=== PATIENT | male | born 1965 | race Caucasian/White ===

== ENCOUNTER 2019-04-28 18:52 | Emergency (ER) | payer OTHER ==
[2019-04-28 19:20] VITALS: BP 124/84
--- NOTE | 2019-04-28 19:25 | ED Physician Documentation ---
General Adult - HPI Stated Complaint: possible in sect bite Chief Complaint: General Adult Timing: still present Severity: mild Further Comments: yes (Pt is a 54 yo male with a possible insect bite on his R forearm. 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 There is no warmth or tenderness. Tetanus is utd.) - ROS CONST: no problems EYES/ENT: none CVS/RESP: none GI/: none MS/SKIN/LYMPH: other (insect bite) - PAST HX Past History: hypertension Surgeries/Procedures: cholecystectomy Allergies/Adverse Reactions: Allergies Allergy/AdvReac Type Severity Reaction Status Date / Time No Known Allergies Allergy Verified 04/28/19 19:17 Home Medications: Ambulatory Orders Medication Instructions Recorded Chlorthalidone 12.5 mg PO DAILY 04/28/19 Lisinopril 20 mg PO DAILY 04/28/19 Nebivolol HCl (Nf) [Bystolic (Nf)] 5 mg PO DAILY 04/28/19 amLODIPine BESYLATE [Norvasc] 5 mg PO DAILY 04/28/19 - SOCIAL HX Smoking History: quit greater than 1 year - FAMILY HX Family History: No - VITAL SIGNS Vital Signs: Vital Signs Temp Pulse Resp BP Pulse Ox 97.8 F 65 14 124/84 94 04/28/19 18:54 04/28/19 18:54 04/28/19 18:54 04/28/19 18:54 04/28/19 18:54 - REVIEWED ASSESSMENTS Nursing Assessment Reviewed: Yes Vitals Reviewed: Yes Progress - Progress Progress: Apply topical antibiotic such as Neosporin, Bacitracin, or Triple Antibiotic to affected area twice daily for about 5 days. General Adult Physical Exam - PHYSICAL EXAM GENERAL APPEARANCE: no distress NECK: normal inspection, supple RESPIRATORY: no resp distress, chest non-tender CVS: reg rate & rhythm, heart sounds normal BACK: normal inspection SKIN: other (patch of ecchymosis, 3 cm, R anterior forearm, punctate yue in center. No warmth, induration, or floculance.) EXTREMITIES: non-tender, normal range of motion, no evidence of injury NEURO: oriented X3, motor nml, sensation nml Discharge Clincal Impression: insect bite Referrals: Primary Doctor,No [Primary Care Provider] - Condition: Good Disposition: 01 HOME, SELF-CARE Decision to Admit: NO Decision Time: 19:35
== END 2019-04-28 19:32 | disposition home or self-care (01) ==
LOC: ED 18:52
DX: S50.861A Insect bite (nonvenomous) of right forearm, initial encounter (principal); W57.XXXA Bitten or stung by nonvenomous insect and other nonvenomous arthropods, initial encounter
CPT/HCPCS: 99281